=== PATIENT | male | born 1940 | race African-American/Black ===

== ENCOUNTER 2017-12-11 10:03 | Outpatient (CLI) | payer MEDICARE ==
--- NOTE | 2017-12-11 12:33 | RAD ---
TWO VIEWS LEFT HIP: Comparison: None. History: Left hip pain for one week. FINDINGS: Two views of the left hip shows no evidence of acute fracture or dislocation. Moderate joint space na rrowing and osteophyte formation is seen in the left hip joint consistent with osteoarthritis. IMPRESSION: Moderate left hip osteoarthritis. POS: ROSA
== END 2017-12-11 10:04 | disposition home or self-care (01) ==
LOC: RAD 10:03
PROVIDERS: ATTEND Family Medicine
DX: M25.552 Pain in left hip (principal); M16.12 Unilateral primary osteoarthritis, left hip

== ENCOUNTER 2020-03-07 16:24 | Outpatient (CLI) | payer MEDICARE ==
--- NOTE | 2020-03-07 16:51 | RAD ---
EXAM: Chest PA and lateral: HISTORY: Acute congestive heart failure. COMPARISON: 01/16/2005 FINDINGS: Do not agree wires are redemonstrated. Heart: Cardiomegaly. Aorta: Atherosclerotic Pulmonary vessels: Normal Costophrenic angles: Costophrenic angles are clear. Lungs: There are interstitial opacities, suggesting edema. Pneumothorax: No pneumothorax Osseous structures: No osseous abnormalities IMPRESSION: Cardiomegaly. Interstitial edema. Congestive heart failure.
== END 2020-03-07 16:25 | disposition home or self-care (01) ==
LOC: BICRAD 16:24
PROVIDERS: ATTEND Family Medicine
DX: I50.9 Heart failure, unspecified (principal); I51.7 Cardiomegaly; J81.1 Chronic pulmonary edema
CPT/HCPCS: 36415; 71046; 80048; 83036; 83880

== ENCOUNTER 2022-12-11 15:07 | Inpatient (IN) | payer MEDICARE ==
[~2022-12-11 15:07] MED LIST: Iopamidol-370 76% 500 ML MDV (1 ML CHARGE) ONE
[2022-12-11] MEDS ORDERED: HYDROcodone/Acetaminophen 5/325 mg Tablet PO PRN (16:22)
[2022-12-11] MEDS ORDERED: Dextrose 5% in Water 1,000 ML IV PRN (16:24)
[2022-12-11] MEDS ORDERED: Dextrose 50% Abboject 50 ML SYRINGE SLOW IVP PRN (16:24)
[2022-12-11] MEDS ORDERED: Glucagon 1 MG/ML KIT IM PRN (16:24)
[2022-12-11] MEDS ORDERED: Nitroglycerin 0.4 MG TAB (25 Tab Bottle) SL PRN (16:25)
[2022-12-11] MEDS ORDERED: hydrALAZINE 20 MG/ML VIAL SLOW IVP PRN (16:27)
[2022-12-11 16:44] LABS: #Eosinphils 0.1 thou/uL (0.0-0.7); #Monocytes 0.7 thou/uL (0.11-0.59); #Neutrophils 3.9 thou/uL (1.40-6.50); %Basophils 0.3 % (0.0-1.0); %Eosinophils 1.1 % (0.0-10.0); %Lymphocytes 23.9 % (21.0-51.0); %Monocytes 10.7 % (0.0-10.0); %Neutrophils 63.5 % (42.0-75.0); Hematocrit 32.6 % (42.0-52.0); Hemoglobin 10.6 g/dL (14.0-18.0); Mean Corpuscular HGB CONC 32.5 g/dL (32.0-36.0); Mean Corpuscular Hemoglobin 31.2 pg (27.0-31.0); Mean Corpuscular Volume 95.9 fl (78.0-98.0); Mean Platelet Volume 10.1 fL (7.4-10.4); Platelet Count 137 10x3/uL (130-400); RBC Distribution Width 13.8 % (11.5-14.5); White Blood Cell (WBC) Count 6.2 10x3/uL (4.8-10.8)
[2022-12-11 17:01] LABS: Hemoglobin A1c 13.3 % (4.0-6.0)
[2022-12-11 17:03] LABS: Lactic Acid 1.3 mmol/L (0.5-2.2)
[2022-12-11 17:04] VITALS: BMI 33.1
[2022-12-11 17:06] LABS: Anion Gap 14 mmol/L (10-20); BUN (Urea Nitrogen) 22 mg/dL (8.4-25.7); Calc. Creatinine Clearance 52 mL/min (70-130); Calcium 8.4 mg/dL (7.8-10.44); Carbon Dioxide 25 mmol/L (23-31); Chloride 103 mmol/L (98-107); Estimated GFR 37; Glucose 280 mg/dL (83-110); Potassium 3.7 mmol/L (3.5-5.1); Sodium 138 mmol/L (136-145)
[2022-12-11 17:19] LABS: Troponin I 0.997 ng/mL (< 0.028)
[2022-12-11 20:54] LABS: Critical Call Chem Troponin I RESULT DECREASING; Troponin I 0.706 ng/mL (< 0.028)
[2022-12-11] MEDS: Atorvastatin Calcium 40 MG TAB PO SCH (21:44)
[2022-12-11] MEDS: Insulin Glargine 30 UNITS/0.3 ML VIAL SC SCH (21:44)
[2022-12-11] MEDS: Metoprolol Tartrate 25 MG TAB PO SCH (21:44)
[2022-12-11] MEDS: Enoxaparin 120 MG/0.8 ML SYRINGE SC SCH (21:44)
[2022-12-12 04:34] LABS: #Eosinphils 0.1 thou/uL (0.0-0.7); #Monocytes 0.7 thou/uL (0.11-0.59); #Neutrophils 4.6 thou/uL (1.40-6.50); %Basophils 0.3 % (0.0-1.0); %Lymphocytes 21.2 % (21.0-51.0); %Monocytes 10.4 % (0.0-10.0); %Neutrophils 66.5 % (42.0-75.0); Hematocrit 29.9 % (42.0-52.0); Hemoglobin 9.9 g/dL (14.0-18.0); Mean Corpuscular HGB CONC 33.1 g/dL (32.0-36.0); Mean Corpuscular Hemoglobin 31.6 pg (27.0-31.0); Mean Corpuscular Volume 95.5 fl (78.0-98.0); Mean Platelet Volume 10.3 fL (7.4-10.4); Platelet Count 132 10x3/uL (130-400); RBC Distribution Width 14.3 % (11.5-14.5); Red Blood Cell (RBC) Count 3.13 mill/uL (4.70-6.10); White Blood Cell (WBC) Count 6.8 10x3/uL (4.8-10.8)
[2022-12-12 04:58] LABS: Anion Gap 14 mmol/L (10-20); BUN (Urea Nitrogen) 20 mg/dL (8.4-25.7); Calc. Creatinine Clearance 56 mL/min (70-130); Calcium 8.5 mg/dL (7.8-10.44); Carbon Dioxide 23 mmol/L (23-31); Chloride 106 mmol/L (98-107); Estimated GFR 41; Glucose 223 mg/dL (83-110); Potassium 3.8 mmol/L (3.5-5.1); Sodium 139 mmol/L (136-145)
[2022-12-12] MEDS: Enoxaparin 120 MG/0.8 ML SYRINGE SC SCH ×2 (08:12→20:39)
[2022-12-12] MEDS: Metoprolol Tartrate 25 MG TAB PO SCH (08:13)
[2022-12-12] MEDS: Aspirin 81 mg Enteric Coated Tablet PO SCH (08:13)
[2022-12-12 09:23] LABS: Iron 47 ug/dL (65-175); Iron Binding Capacity, Total 279 mcg/dL (261-462)
[2022-12-12] MEDS ORDERED: Empagliflozin 10 MG TAB PO SCH (10:00)
[2022-12-12] MEDS: Insulin Regular 300 UNITS/3 ML VIAL SC PRN ×3 (11:44→20:40)
[2022-12-12] MEDS ORDERED: Iron, Sodium Ferric Gluconate 250 MG in Sodium Chloride 0.9% 250 ML 250 ML IVPB SCH (12:00)
[2022-12-12] MEDS: Amiodarone 200 MG TAB PO SCH ×2 (14:06→20:39)
[2022-12-12] MEDS: Furosemide 20 MG/2 ML VIAL SLOW IVP SCH (14:06)
[2022-12-12] MEDS ORDERED: Amiodarone 200 MG TAB PO SCH (15:00)
[2022-12-12] MEDS: Carvedilol 6.25 MG TAB PO SCH (16:40)
[2022-12-12] MEDS: Atorvastatin Calcium 40 MG TAB PO SCH (20:39)
[2022-12-12] MEDS: Insulin Glargine 30 UNITS/0.3 ML VIAL SC SCH (20:40)
[2022-12-13] MEDS: Furosemide 20 MG/2 ML VIAL SLOW IVP SCH ×2 (06:02→16:57)
[2022-12-13 06:10] LABS: Troponin I 0.382 ng/mL (< 0.028)
[2022-12-13] MEDS: Aspirin 81 mg Enteric Coated Tablet PO SCH (09:23)
[2022-12-13] MEDS: Amiodarone 200 MG TAB PO SCH ×3 (09:23→20:44)
[2022-12-13] MEDS: Carvedilol 6.25 MG TAB PO SCH ×2 (09:23→16:57)
[2022-12-13] MEDS: Sacubitril 24MG/Valsartan 26 MG TAB PO SCH ×2 (09:23→20:44)
[2022-12-13] MEDS: Enoxaparin 120 MG/0.8 ML SYRINGE SC SCH ×2 (09:23→20:44)
[2022-12-13] MEDS: Empagliflozin 10 MG TAB PO SCH (09:23)
[2022-12-13 09:54] LABS: #Eosinphils 0.1 thou/uL (0.0-0.7); #Monocytes 0.9 thou/uL (0.11-0.59); #Neutrophils 6.7 thou/uL (1.40-6.50); %Basophils 0.3 % (0.0-1.0); %Eosinophils 0.6 % (0.0-10.0); %Lymphocytes 14.6 % (21.0-51.0); %Monocytes 9.6 % (0.0-10.0); %Neutrophils 74.5 % (42.0-75.0); Mean Corpuscular HGB CONC 32.4 g/dL (32.0-36.0); Mean Corpuscular Hemoglobin 31.9 pg (27.0-31.0); Mean Corpuscular Volume 98.6 fl (78.0-98.0); Mean Platelet Volume 10.9 fL (7.4-10.4); RBC Distribution Width 14.4 % (11.5-14.5); Red Blood Cell (RBC) Count 3.45 mill/uL (4.70-6.10)
[2022-12-13 10:05] LABS: Delete Auto Diff?? NO; Platelet Count 101 10x3/uL (130-400)
[2022-12-13 10:15] LABS: Anion Gap 17 mmol/L (10-20); BUN (Urea Nitrogen) 21 mg/dL (8.4-25.7); Calc. Creatinine Clearance 58 mL/min (70-130); Calcium 8.8 mg/dL (7.8-10.44); Carbon Dioxide 23 mmol/L (23-31); Chloride 105 mmol/L (98-107); Estimated GFR 43; Glucose 275 mg/dL (83-110); Potassium 3.9 mmol/L (3.5-5.1); Sodium 141 mmol/L (136-145)
[2022-12-13] MEDS: Insulin Regular 300 UNITS/3 ML VIAL SC PRN ×2 (12:09→18:36)
[2022-12-13] MEDS: Insulin Glargine 30 UNITS/0.3 ML VIAL SC SCH (20:44)
[2022-12-13] MEDS: Atorvastatin Calcium 40 MG TAB PO SCH (20:44)
[2022-12-13] MEDS: Terazosin HCl 5 MG CAP PO SCH (20:44)
[2022-12-14 05:18] LABS: #Eosinphils 0.1 thou/uL (0.0-0.7); %Basophils 0.3 % (0.0-1.0); %Eosinophils 1.8 % (0.0-10.0); %Lymphocytes 19.6 % (21.0-51.0); %Monocytes 12.5 % (0.0-10.0); %Neutrophils 65.4 % (42.0-75.0); Hematocrit 31.1 % (42.0-52.0); Hemoglobin 10.1 g/dL (14.0-18.0); Mean Corpuscular HGB CONC 32.5 g/dL (32.0-36.0); Mean Corpuscular Hemoglobin 31.5 pg (27.0-31.0); Mean Corpuscular Volume 96.9 fl (78.0-98.0); Mean Platelet Volume 10.3 fL (7.4-10.4); Platelet Count 134 10x3/uL (130-400); RBC Distribution Width 14.2 % (11.5-14.5); Red Blood Cell (RBC) Count 3.21 mill/uL (4.70-6.10); White Blood Cell (WBC) Count 7.7 10x3/uL (4.8-10.8)
[2022-12-14 05:42] LABS: Anion Gap 15 mmol/L (10-20); BUN (Urea Nitrogen) 19 mg/dL (8.4-25.7); Calc. Creatinine Clearance 67 mL/min (70-130); Calcium 8.8 mg/dL (7.8-10.44); Carbon Dioxide 22 mmol/L (23-31); Chloride 107 mmol/L (98-107); Estimated GFR 50; Glucose 174 mg/dL (83-110); Potassium 3.3 mmol/L (3.5-5.1); Sodium 141 mmol/L (136-145)
[2022-12-14] MEDS: Furosemide 20 MG/2 ML VIAL SLOW IVP SCH ×2 (05:57→14:39)
[2022-12-14] MEDS: Insulin Regular 300 UNITS/3 ML VIAL SC PRN ×4 (05:57→20:26)
[2022-12-14] MEDS: Sacubitril 24MG/Valsartan 26 MG TAB PO SCH ×2 (09:20→20:24)
[2022-12-14] MEDS: Empagliflozin 10 MG TAB PO SCH (09:20)
[2022-12-14] MEDS: Aspirin 81 mg Enteric Coated Tablet PO SCH (09:21)
[2022-12-14] MEDS: Carvedilol 6.25 MG TAB PO SCH ×2 (09:21→17:51)
[2022-12-14] MEDS: Enoxaparin 120 MG/0.8 ML SYRINGE SC SCH ×2 (09:22→20:23)
[2022-12-14] MEDS: Amiodarone 200 MG TAB PO SCH ×3 (09:22→20:22)
[2022-12-14] MEDS ORDERED: Potassium Chloride 20 MEQ TAB PO SCH ×2 (10:15→20:00)
[2022-12-14] MEDS: Atorvastatin Calcium 40 MG TAB PO SCH (20:23)
[2022-12-14] MEDS: Insulin Glargine 30 UNITS/0.3 ML VIAL SC SCH (20:23)
[2022-12-14] MEDS: Terazosin HCl 5 MG CAP PO SCH (20:24)
[2022-12-15] MEDS: Furosemide 20 MG/2 ML VIAL SLOW IVP SCH (05:54)
[2022-12-15 06:21] LABS: #Eosinphils 0.1 thou/uL (0.0-0.7); #Monocytes 0.9 thou/uL (0.11-0.59); #Neutrophils 4.8 thou/uL (1.40-6.50); %Basophils 0.1 % (0.0-1.0); %Eosinophils 1.4 % (0.0-10.0); %Lymphocytes 18.6 % (21.0-51.0); %Monocytes 12.1 % (0.0-10.0); %Neutrophils 67.5 % (42.0-75.0); Hematocrit 30.7 % (42.0-52.0); Hemoglobin 9.9 g/dL (14.0-18.0); Mean Corpuscular HGB CONC 32.2 g/dL (32.0-36.0); Mean Corpuscular Hemoglobin 31.1 pg (27.0-31.0); Mean Corpuscular Volume 96.5 fl (78.0-98.0); Mean Platelet Volume 10.2 fL (7.4-10.4); Platelet Count 151 10x3/uL (130-400); RBC Distribution Width 14.3 % (11.5-14.5); Red Blood Cell (RBC) Count 3.18 mill/uL (4.70-6.10); White Blood Cell (WBC) Count 7.1 10x3/uL (4.8-10.8)
[2022-12-15 06:44] LABS: Anion Gap 10 mmol/L (10-20); BUN (Urea Nitrogen) 18 mg/dL (8.4-25.7); Calc. Creatinine Clearance 64 mL/min (70-130); Calcium 8.6 mg/dL (7.8-10.44); Carbon Dioxide 27 mmol/L (23-31); Chloride 106 mmol/L (98-107); Estimated GFR 52; Glucose 160 mg/dL (83-110); Potassium 3.5 mmol/L (3.5-5.1); Sodium 139 mmol/L (136-145)
[2022-12-15] MEDS ORDERED: Lidocaine 1% PF 5 ML VIAL ONE (09:11)
[2022-12-15] MEDS ORDERED: PROPOFOL 200 MG/20 ML VIAL ONE (09:11)
[2022-12-15] MEDS ORDERED: Potassium Chloride 20 MEQ TAB PO SCH (09:45)
[2022-12-15] MEDS: Carvedilol 6.25 MG TAB PO SCH ×2 (10:56→15:43)
[2022-12-15] MEDS: Sacubitril 24MG/Valsartan 26 MG TAB PO SCH ×2 (10:57→21:17)
[2022-12-15] MEDS: Enoxaparin 120 MG/0.8 ML SYRINGE SC SCH ×2 (10:57→15:23)
[2022-12-15] MEDS: Amiodarone 200 MG TAB PO SCH ×3 (11:44→21:17)
[2022-12-15] MEDS: Aspirin 81 mg Enteric Coated Tablet PO SCH (11:52)
[2022-12-15] MEDS: Empagliflozin 10 MG TAB PO SCH (11:55)
[2022-12-15] MEDS ORDERED: Iron, Sodium Ferric Gluconate 250 MG in Sodium Chloride 0.9% 250 ML 250 ML IVPB SCH (15:00)
[2022-12-15] MEDS: Insulin Regular 300 UNITS/3 ML VIAL SC PRN (18:13)
[2022-12-15] MEDS: Atorvastatin Calcium 40 MG TAB PO SCH (21:17)
[2022-12-15] MEDS: Insulin Glargine 30 UNITS/0.3 ML VIAL SC SCH (21:18)
[2022-12-15] MEDS: Apixaban 5 MG TAB PO SCH (21:18)
[2022-12-15] MEDS: Terazosin HCl 5 MG CAP PO SCH (21:22)
[2022-12-16 04:20] LABS: #Eosinphils 0.1 thou/uL (0.0-0.7); #Monocytes 1.1 thou/uL (0.11-0.59); #Neutrophils 6.2 thou/uL (1.40-6.50); %Basophils 0.2 % (0.0-1.0); %Eosinophils 0.6 % (0.0-10.0); %Lymphocytes 13.9 % (21.0-51.0); %Monocytes 12.9 % (0.0-10.0); %Neutrophils 72.1 % (42.0-75.0); Hematocrit 30.2 % (42.0-52.0); Hemoglobin 9.7 g/dL (14.0-18.0); Mean Corpuscular HGB CONC 32.1 g/dL (32.0-36.0); Mean Corpuscular Hemoglobin 31.5 pg (27.0-31.0); Mean Corpuscular Volume 98.1 fl (78.0-98.0); Mean Platelet Volume 10.1 fL (7.4-10.4); Platelet Count 141 10x3/uL (130-400); RBC Distribution Width 14.6 % (11.5-14.5); Red Blood Cell (RBC) Count 3.08 mill/uL (4.70-6.10); White Blood Cell (WBC) Count 8.6 10x3/uL (4.8-10.8)
[2022-12-16 04:51] LABS: Anion Gap 14 mmol/L (10-20); BUN (Urea Nitrogen) 19 mg/dL (8.4-25.7); Calc. Creatinine Clearance 58 mL/min (70-130); Calcium 8.6 mg/dL (7.8-10.44); Carbon Dioxide 24 mmol/L (23-31); Chloride 106 mmol/L (98-107); Estimated GFR 46; Glucose 189 mg/dL (83-110); Potassium 3.9 mmol/L (3.5-5.1); Sodium 140 mmol/L (136-145)
[2022-12-16] MEDS: Sacubitril 24MG/Valsartan 26 MG TAB PO SCH ×2 (08:44→18:09)
[2022-12-16] MEDS: Amiodarone 200 MG TAB PO SCH ×2 (08:44→16:15)
[2022-12-16] MEDS: Apixaban 5 MG TAB PO SCH ×2 (08:44→18:09)
[2022-12-16] MEDS: Carvedilol 6.25 MG TAB PO SCH ×2 (08:45→16:16)
[2022-12-16] MEDS: Empagliflozin 10 MG TAB PO SCH (08:45)
[2022-12-16] MEDS: Aspirin 81 mg Enteric Coated Tablet PO SCH (08:45)
[2022-12-16] MEDS: Insulin Regular 300 UNITS/3 ML VIAL SC PRN ×2 (11:40→17:15)
[2022-12-16] MEDS ORDERED: Potassium Chloride 20 MEQ TAB PO SCH (12:00)
[2022-12-16] MEDS ORDERED: Furosemide 20 MG/2 ML VIAL SLOW IVP SCH (14:00)
[2022-12-16 16:15] VITALS: BP 115/53; TEMP 98.8
== END 2022-12-16 18:34 | disposition home health service (06) | DRG 280 ==
LOC: 2NO 16:13
PROVIDERS: ADMIT Internal Medicine; ATTEND Internal Medicine
PROC: B245ZZ4 Ultrasonography of Left Heart, Transesophageal (ICD-10-PCS; 2022-12-15)
PROC: 5A2204Z Restoration of Cardiac Rhythm, Single (ICD-10-PCS; principal; 2022-12-16)
DX: I13.0 Hypertensive heart and chronic kidney disease with heart failure and stage 1 through stage 4 chronic kidney disease, or unspecified chronic kidney disease (principal); I21.A1 Myocardial infarction type 2; I50.43 Acute on chronic combined systolic (congestive) and diastolic (congestive) heart failure; I48.92 Unspecified atrial flutter; I42.9 Cardiomyopathy, unspecified; E78.5 Hyperlipidemia, unspecified; I44.0 Atrioventricular block, first degree; N18.30 Chronic kidney disease, stage 3 unspecified; E11.22 Type 2 diabetes mellitus with diabetic chronic kidney disease; E11.65 Type 2 diabetes mellitus with hyperglycemia; D63.1 Anemia in chronic kidney disease; G47.33 Obstructive sleep apnea (adult) (pediatric); I48.91 Unspecified atrial fibrillation; D50.9 Iron deficiency anemia, unspecified; R77.8 Other specified abnormalities of plasma proteins; I08.1 Rheumatic disorders of both mitral and tricuspid valves; I95.9 Hypotension, unspecified; Z96.651 Presence of right artificial knee joint; Z95.1 Presence of aortocoronary bypass graft; Z85.038 Personal history of other malignant neoplasm of large intestine; Z90.49 Acquired absence of other specified parts of digestive tract; Z87.891 Personal history of nicotine dependence; Z82.49 Family history of ischemic heart disease and other diseases of the circulatory system
CPT/HCPCS: 36415; 36416; 71045; 71275; 80048; 82728; 83036; 83540; 83550; 83605; 83880; 84484; 85025; 85379; 92960; 93005; 93010; 93306; 93312; 97139; J1650; J1815; J1940; J2704; J2916; J7050; Q9967

== ENCOUNTER 2023-01-29 07:27 | Day surgery (SDC) | payer MEDICARE ==
[2023-01-26 16:35] VITALS: BMI 29.2
[2023-01-26 17:45] LABS: Hematocrit 32.9 % (38.8-50.0); Hemoglobin 11.1 g/dL (13.5-17.5); Mean Corpuscular HGB CONC 33.7 g/dL (32.0-36.0); Mean Corpuscular Hemoglobin 31.7 pg (27.0-33.0); Mean Platelet Volume 10.4 fl (7.4-10.4); Platelet Count 178 10x3/uL (150-450); RBC Distribution Width 13.7 % (11.5-14.5)
[2023-01-26 18:13] LABS: Prothrombin Time 10.8 sec (9.5-12.1)
[2023-01-26 18:36] LABS: Anion Gap 18 mmol/L (10-20); BUN (Urea Nitrogen) 29 mg/dL (8.4-25.7); Calc. Creatinine Clearance 39 mL/min (70-130); Calcium 8.5 mg/dL (7.8-10.44); Carbon Dioxide 24 mmol/L (23-31); Chloride 96 mmol/L (98-107); Estimated GFR 31; Glucose 388 mg/dL (83-110); Potassium 4.6 mmol/L (3.5-5.1); Sodium 133 mmol/L (136-145)
[2023-01-29] MEDS ORDERED: Vancomycin (BATCH) 1.5 GM/300 ML BAG ONE (08:12)
[2023-01-29] MEDS ORDERED: Lidocaine 1% (PF) 30 ML VIAL ONE (09:10)
[2023-01-29] MEDS ORDERED: Gentamicin 80 MG/2 ML VIAL ONE (09:10)
[2023-01-29] MEDS ORDERED: CEFAZOLIN 2 GM VIAL ONE (09:10)
[2023-01-29] MEDS ORDERED: Lidocaine 1% PF 5 ML VIAL ONE (10:49)
[2023-01-29] MEDS ORDERED: PHENYLEPHRINE-NS 100 MCG/ML 10 ML SYRINGE ONE (10:49)
[2023-01-29] MEDS ORDERED: Ondansetron PF 4 MG/2 ML Vial ONE (10:49)
[2023-01-29] MEDS ORDERED: PROPOFOL 200 MG/20 ML VIAL ONE (10:49)
[2023-01-29] MEDS ORDERED: Iopamidol 370 76% 100 ML VIAL ONE (11:25)
[2023-01-29] MEDS ORDERED: fentaNYL 50 mcg/mL 1 mL Vial ONE (15:06)
== END 2023-01-29 16:47 | disposition home or self-care (01) ==
LOC: SDC 07:27
PROVIDERS: ATTEND Internal Medicine Cardiovascular Disease
PROC: 0JH608Z Insertion of Defibrillator Generator into Chest Subcutaneous Tissue and Fascia, Open Approach (ICD-10-PCS; principal; 2023-01-29)
PROC: 0JH63FZ Insertion of Subcutaneous Defibrillator Lead into Chest Subcutaneous Tissue and Fascia, Percutaneous Approach (ICD-10-PCS; 2023-01-29)
DX: I48.0 Paroxysmal atrial fibrillation (principal); I13.0 Hypertensive heart and chronic kidney disease with heart failure and stage 1 through stage 4 chronic kidney disease, or unspecified chronic kidney disease; N18.9 Chronic kidney disease, unspecified; I50.22 Chronic systolic (congestive) heart failure; E11.22 Type 2 diabetes mellitus with diabetic chronic kidney disease; I25.5 Ischemic cardiomyopathy; I48.92 Unspecified atrial flutter; I25.10 Atherosclerotic heart disease of native coronary artery without angina pectoris; E78.5 Hyperlipidemia, unspecified; Z96.651 Presence of right artificial knee joint; Z95.1 Presence of aortocoronary bypass graft; Z87.891 Personal history of nicotine dependence; Z79.84 Long term (current) use of oral hypoglycemic drugs; Z79.01 Long term (current) use of anticoagulants; Z79.82 Long term (current) use of aspirin; Z79.899 Other long term (current) drug therapy
CPT/HCPCS: 33225; 33249; 71045; 80048; 85027; 85610; 93005; C1763; C1769 ×3; C1777; C1882; C1898; C1900; J3010; J3370; J1580; J2001; J2405; J2704; Q9967

== ENCOUNTER → 2023-03-26 | Day surgery (SDC) | payer MEDICARE ==
[2023-03-25 10:09] VITALS: BMI 28.8
[~2023-03-26] MED LIST changes: +CEFAZOLIN 2 GM VIAL ONE; +Calcium Chloride 1 GM/10 ML Abboject SYRINGE ONE; +Clindamycin/D5W 900 mg/50 ml Premix Bag ONE; +EPINEPHrine 1 MG/10 ML Abboject SYRINGE ONE; +Etomidate 40 MG (20 mL) VIAL ONE; +Gentamicin 80 MG/2 ML VIAL ONE; -Iopamidol-370 76% 500 ML MDV (1 ML CHARGE) ONE; +Lidocaine 1% (PF) 30 ML VIAL ONE; +Lidocaine 2% PF 100 mg/5 ml Syringe ONE; +Ondansetron PF 4 MG/2 ML Vial ONE; +PROPOFOL 20 ML ONE; +Propofol 1,000 MG/100 ML VIAL IV ONE; +Vancomycin (BATCH) 1.5 GM/300 ML BAG ONE; +ePHEDrine/0.9% NaCl/PF SYRINGE 50 mg/10 ml ONE; +fentaNYL 50 mcg/mL 1 mL Vial ONE; +fentaNYL PF 100 MCG/2 ML SYRINGE ONE
== END ==
LOC: SDC 06:00
PROVIDERS: ATTEND Internal Medicine Cardiovascular Disease
PROC: 0JPT3PZ Removal of Cardiac Rhythm Related Device from Trunk Subcutaneous Tissue and Fascia, Percutaneous Approach (ICD-10-PCS; principal; 2023-03-26)
PROC: 0JPT3FZ Removal of Subcutaneous Defibrillator Lead from Trunk Subcutaneous Tissue and Fascia, Percutaneous Approach (ICD-10-PCS; 2023-03-26)
PROC: 0JH63FZ Insertion of Subcutaneous Defibrillator Lead into Chest Subcutaneous Tissue and Fascia, Percutaneous Approach (ICD-10-PCS; 2023-03-26)
DX: I25.10 Atherosclerotic heart disease of native coronary artery without angina pectoris (principal); I25.5 Ischemic cardiomyopathy; I13.0 Hypertensive heart and chronic kidney disease with heart failure and stage 1 through stage 4 chronic kidney disease, or unspecified chronic kidney disease; I50.22 Chronic systolic (congestive) heart failure; E11.22 Type 2 diabetes mellitus with diabetic chronic kidney disease; N18.9 Chronic kidney disease, unspecified; I48.0 Paroxysmal atrial fibrillation; I48.92 Unspecified atrial flutter; T82.111A Breakdown (mechanical) of cardiac pulse generator (battery), initial encounter; E78.5 Hyperlipidemia, unspecified; M19.90 Unspecified osteoarthritis, unspecified site; Z79.01 Long term (current) use of anticoagulants; Z79.82 Long term (current) use of aspirin; Z79.899 Other long term (current) drug therapy; Z88.8 Allergy status to other drugs, medicaments and biological substances; Z95.5 Presence of coronary angioplasty implant and graft; Z98.890 Other specified postprocedural states; Z92.89 Personal history of other medical treatment; Z85.038 Personal history of other malignant neoplasm of large intestine; Z96.651 Presence of right artificial knee joint; Z87.891 Personal history of nicotine dependence; Z79.84 Long term (current) use of oral hypoglycemic drugs
CPT/HCPCS: 33264; 93005; C1763; C1882; J3010; J3370; J0171; J1580; J2001; J2405; J2704; J3490

== ENCOUNTER 2024-01-28 11:18 | Outpatient (CLI) | payer MEDICARE | END 2024-01-28 11:19 | disposition home or self-care (01) | LOC: BICRAD 11:18 | PROVIDERS: ATTEND Internal Medicine Cardiovascular Disease | DX: I48.0 Paroxysmal atrial fibrillation (principal); I51.7 Cardiomegaly | CPT/HCPCS: 71046 ==